=== PATIENT | male | born 1950 | race Caucasian/White ===

== ENCOUNTER 2016-12-04 16:28 | Emergency (ER) | payer MEDICARE, OTHER ==
[~2016-12-04] VITALS: Ht 175.3 cm; Wt 91.2 kg
[~2016-12-04 16:28] MED LIST: SIMV20TA3 PO
[2016-12-04 17:00] VITALS: BP 159/96
[2016-12-04] MEDS ORDERED: KETOROLAC 30 MG/1 ML IM ONE (17:30)
[2016-12-04] MEDS ORDERED: ONDANSETRON ODT 4 MG ONE (17:37)
[2016-12-04] MEDS ORDERED: OXYcodone/APAP 5/325MG TABLET ONE (17:37)
[2016-12-04] MEDS ORDERED: ONDANSETRON ODT 4 MG PO ONE (18:00)
[2016-12-04] MEDS ORDERED: OXYcodone/APAP 5/325MG TABLET PO ONE (18:00)
== END 2016-12-04 18:10 | disposition home or self-care (01) ==
LOC: ED 18:00
DX: M51.16 Intervertebral disc disorders with radiculopathy, lumbar region (principal)
CPT/HCPCS: 72110; 99284; J7512; Q0162